=== PATIENT | female | born 1980 | race Caucasian/White ===

== ENCOUNTER 2022-05-27 13:02 | Outpatient (CLI) | payer OTHER, SELFPAY | END 2022-05-27 13:03 | disposition home or self-care (01) | LOC: LKVREF 13:06 | PROVIDERS: PCP Family Medicine; Visit Provider Family Medicine | DX: R05.9 Cough, unspecified (principal); I49.3 Ventricular premature depolarization | CPT/HCPCS: 84443 ==

== ENCOUNTER 2022-06-14 08:45 | Outpatient (CLI) | payer OTHER, SELFPAY | END 2022-06-14 08:46 | disposition home or self-care (01) | PROVIDERS: PCP Family Medicine; Visit Provider Family Medicine | DX: I49.3 Ventricular premature depolarization (principal); I34.0 Nonrheumatic mitral (valve) insufficiency; I35.1 Nonrheumatic aortic (valve) insufficiency | CPT/HCPCS: 93306 ==

== ENCOUNTER 2023-04-28 11:43 | Outpatient (CLI) | payer OTHER, SELFPAY | END 2023-04-28 11:44 | disposition home or self-care (01) | PROVIDERS: PCP Family Medicine; Visit Provider Family Medicine | DX: M25.541 Pain in joints of right hand (principal) | CPT/HCPCS: 84550; 86431 ==